=== PATIENT | female | born 1950 | race Caucasian/White ===

== ENCOUNTER 2018-06-27 10:50 | Inpatient (IN) | payer MEDICARE ==
[~2018-06-27] VITALS: Ht 160 cm; Wt 63.5 kg
[2018-06-27] MEDS ORDERED: ONDANSETRON HCL 4 MG/2 ML VIAL ONE (11:22)
[2018-06-27 11:26] LABS: BASOPHILS % (AUTO) 1.3 % (0.0-5.0); HEMATOCRIT 40.8 % (36-48); LYMPHOCYTES % (AUTO) 15.6 % (21.0-51.0); MEAN CORPUSCULAR HEMOGLOBIN 30.4 pg (27.0-33.0); MEAN CORPUSCULAR HGB CONC 34.9 g/dL (32.0-36.0); MEAN CORPUSCULAR VOLUME 87.2 fL (79-99); MONOCYTES % (AUTO) 5.7 % (3.0-13.0); NEUTROPHILS % (AUTO) 76.4 % (40.0-77.0); PLATELET COUNT (AUTO) 347 K/uL (130-400); RED BLOOD CELL COUNT(AUTO) 4.68 MIL/uL (4.00-5.50); RED CELL DISTRIBUTION WIDTH 12.6 % (11.0-15.5); WHITE BLOOD COUNT (AUTO) 7.7 K/uL (4.8-10.8)
[2018-06-27 11:37] LABS: CREATININE 0.6 mg/dL (0.5-1.5); POTASSIUM 3.2 mmol/L (3.5-5.1)
[2018-06-27 11:41] LABS: ALBUMIN 3.4 g/dL (3.5-5.0); BILIRUBIN,TOTAL 0.2 mg/dL (0.2-1.0); TOTAL PROTEIN, SERUM 7.1 g/dL (6.0-8.3)
[2018-06-27] MEDS ORDERED: FENTANYL CITRATE PF 50 MCG/1 ML 2ML VIAL ONE (12:08)
[2018-06-27] MEDS ORDERED: IOHEXOL 350 MG/ML 100ML INFUS..BTL IV ONE (12:10)
--- NOTE | 2018-06-27 12:45 | NUR ---
ER ADMIT TO ROOM 309. ASSESSMENT DONE.
[2018-06-27 13:42] LABS: APPEARANCE,URINE Clear (CLEAR); BILIRUBIN,URINE Negative (NEGATIVE); COLOR,URINE Yellow (YELLOW); GLUCOSE, URINE (UA) Negative (NEGATIVE); KETONES,URINE Negative (NEGATIVE); LEUKOCYTE ESTERASE ,URINE Negative (NEGATIVE); NITRATE,URINE Negative (NEGATIVE); OCCULT BLOOD,URINE Negative (NEGATIVE); PROTEIN,URINE Negative (NEGATIVE); UROBILINOGEN,URINE 0.2 mg/dL (0.2-1.0)
[2018-06-27] MEDS ORDERED: HYDRALAZINE HCL 20 MG/ML VIAL IV PRN (15:00)
[2018-06-27] MEDS ORDERED: ACETAMINOPHEN 325 MG TAB PO PRN ×2 (15:00)
[2018-06-27] MEDS ORDERED: ZOLPIDEM TARTRATE 5 MG TAB PO PRN (15:00)
[2018-06-27] MEDS ORDERED: ALPRAZOLAM 0.25 MG TABLET PO PRN (15:00)
[2018-06-27] MEDS ORDERED: LACTULOSE 20 GM/30 ML UDCUP PO PRN (15:00)
[2018-06-27] MEDS ORDERED: GUAIFENESIN-DM 200/20 MG 10 ML PO PRN (15:00)
[2018-06-27] MEDS ORDERED: ONDANSETRON HCL MDV 20ML 2 MG/ML VIAL IVP PRN (15:00)
[2018-06-27] MEDS ORDERED: METOPROLOL TARTRATE 1 MG/ML 5ML VIAL IV PRN (15:00)
[2018-06-27] MEDS ORDERED: IPRATROPIUM/ALBUTEROL SULFATE 3 ML SOLUTION IH PRN (15:00)
[2018-06-27] MEDS ORDERED: HYDROCODONE/ACETAMINOPHEN 5/325 MG TAB PO PRN (15:00)
--- NOTE | 2018-06-27 15:39 | NUR ---
DR. CARPIO HAS BEEN CONSULTED AND HAS RETURNED CALL.
[2018-06-27 16:00] VITALS: BP 154/75
[2018-06-27 19:05] VITALS: BP 127/64
[2018-06-27] MEDS ORDERED: LIDOCAINE HCL-MPF 1% 2ML VIAL IVP PRN (19:30)
[2018-06-27] MEDS ORDERED: POTASSIUM CHLORIDE 10% ELIXIR 20 MEQ/15 ML UDCUP PO PRN (19:30)
[2018-06-27] MEDS ORDERED: POTASSIUM CHLORIDE 20MEQ/100ML 100 ML IV PRN (19:30)
[2018-06-27] MEDS: HYDROMORPHONE HCL 2 MG/ML VIAL IVP PRN ×2 (19:36→21:14)
[2018-06-27] MEDS: POTASSIUM CHLORIDE 20 MEQ ERTAB PO PRN ×2 (21:05→23:03)
--- NOTE | 2018-06-27 22:32 | NUR ---
[facility] MED DISCREPANCY RECORDED IN [facility] AT 2113 PT RECEIVED DILAUDID IVP,ATTEMPTED TO DOCUMENT FOR PAIN REASSESSMENT WHEN MED WAS GIVEN BY DERRICK GEORGE RN, MAY HAVE CLICKED ON A LUCIO INADVERTENTLY THAT RECORDED MED WAS GIVEN AT SAID TIME. MED WAS ONLY GIVEN AT 1935 Addendum: 06/27/18 at 2235 by CAMILLE ALEGRE RN RN Amended: Links added.
[2018-06-28] VITALS (14 sets, daily range): BP systolic 109–160; BP diastolic 46–88
[2018-06-28] MEDS ORDERED: HYDROMORPHONE HCL 0.5 MG/0.5 ML ML ONE (01:17)
[2018-06-28] MEDS: POTASSIUM CHLORIDE 20 MEQ ERTAB PO PRN (01:20)
[2018-06-28 06:01] LABS: CREATININE 0.6 mg/dL (0.5-1.5); POTASSIUM 4.5 mmol/L (3.5-5.1)
[2018-06-28] MEDS: HYDROMORPHONE HCL 2 MG/ML VIAL IVP PRN ×2 (08:39→16:47)
[2018-06-28 09:14] LABS: INR 0.96 (0.85-1.15); PARTIAL THROMBOPLASTIN TIME 29.8 SEC (26.3-35.5); PROTHROMBIN TIME 10.1 SEC (9.6-11.6)
--- NOTE | 2018-06-28 10:45 | NUR ---
TAKEN DOWNSTAIRS FOR PROCEDURE. PATIENT AWAKE AND ALERT, VOICES NO COMPLAINTS.
[2018-06-28] MEDS ORDERED: LIDOCAINE HCL 1% 20 ML VIAL ONE (11:10)
[2018-06-28] MEDS ORDERED: FENTANYL CITRATE PF 50 MCG/1 ML 2ML VIAL ONE (11:10)
[2018-06-28] MEDS ORDERED: MIDAZOLAM HCL 1 MG/ML 2ML VIAL ONE (11:11)
--- NOTE | 2018-06-28 11:24 | NUR ---
DCP CM met with pt discussed dc plans. Pt is independent, lives at home with spouse. Denies any equipments/services. Pt feels safe to go back home, still drives, spouse able to assist with transportation and needs. DC plan to home once stable. CM to cont to follow up. Addendum: 06/28/18 at 1125 by SHERRI AREVALO LVN CM Amended: Links added.
--- NOTE | 2018-06-28 11:55 | NUR ---
CT GD RT CHEST WALL BX PROCEDURE PERFORMED BY DR Arely MOTT. PUNCTURE SITE RT CHEST AND PATIENT TOLERATED PROCEDURE WELL. SPECIMEN X 3 COLLECTED AND SENT TO LAB. END OF PROCEDURE AT 1140. BIOPSY NEEDLE REMOVED AND DRESSING APPLIED. NO BLEEDING NOTED. REPORT GIVEN TO Hernando RIOS LVN AND PATIENT TRANSPORTED TO [facility] VIA BED AT 1155. AAO X3 WITH NO C/O PAIN.
[2018-06-28] MEDS ORDERED: ONDANSETRON HCL 4 MG/2 ML VIAL ONE (12:48)
[2018-06-28] MEDS: LACTATED RINGERS 1000ML 1,000 ML IV SCH (12:52)
[2018-06-28] MEDS: PANTOPRAZOLE SODIUM 40 MG TABLET.DR PO SCH (16:46)
[2018-06-28] MEDS: NICOTINE 14 MG/ 24 HR PATCH TD SCH (16:46)
[2018-06-28] MEDS: DIPHENHYDRAMINE HCL 25 MG CAPSULE PO PRN (20:54)
[2018-06-29] MEDS: LACTATED RINGERS 1000ML 1,000 ML IV SCH ×3 (01:56→19:17)
[2018-06-29] MEDS: HYDROMORPHONE HCL 2 MG/ML VIAL IVP PRN ×3 (01:58→20:21)
[2018-06-29 03:00] VITALS: BP 179/98
[2018-06-29] MEDS ORDERED: CHOL500050 PO (03:42)
[2018-06-29] MEDS ORDERED: ALEN70TA10 PO (03:42)
[2018-06-29] MEDS ORDERED: AMLO5TAB9 PO ×2 (03:42→05:19)
[2018-06-29] MEDS ORDERED: ATOR10 PO (03:42)
[2018-06-29 05:35] LABS: CREATININE 0.5 mg/dL (0.5-1.5); POTASSIUM 4.2 mmol/L (3.5-5.1)
[2018-06-29 08:00] VITALS: BP 142/72
[2018-06-29] MEDS: PANTOPRAZOLE SODIUM 40 MG TABLET.DR PO SCH (09:14)
[2018-06-29] MEDS: NICOTINE 14 MG/ 24 HR PATCH TD SCH (09:14)
[2018-06-29 12:00] VITALS: BP 158/73
[2018-06-29] MEDS: DIPHENHYDRAMINE HCL 25 MG CAPSULE PO PRN ×2 (12:33→21:09)
--- NOTE | 2018-06-29 14:00 | NUR ---
PATIENT TAKEN DOWNSTAIRS FOR PROCEDURES . PATIENT IN NO ACUTE DISTRESS NOTED.
[2018-06-29] MEDS ORDERED: IOHEXOL-350 50ML VIAL IV ONE (14:03)
[2018-06-29 16:00] VITALS: BP 153/87
--- NOTE | 2018-06-29 18:46 | NUR ---
SPOKE WITH DR. BALLESTEROS NOTIFIED OF PATIENT CONSULT FOR [phone]. DR STATED HE WILL SEE PATIENT TOMORROW.
[2018-06-29 19:00] VITALS: BP 151/90
[2018-06-29] MEDS: LIDOCAINE 5% TOPICAL PATCH TP SCH (19:17)
[2018-06-29 23:17] VITALS: BP 144/77
[2018-06-30 03:00] VITALS: BP 136/83
[2018-06-30] MEDS: HYDROMORPHONE HCL 2 MG/ML VIAL IVP PRN ×2 (03:10→09:35)
[2018-06-30] MEDS: LACTATED RINGERS 1000ML 1,000 ML IV SCH (04:45)
[2018-06-30 05:04] LABS: BASOPHILS % (AUTO) 0.8 % (0.0-5.0); EOSINOPHILS % (AUTO) 1.3 % (0.0-8.0); HEMATOCRIT 37.8 % (36-48); LYMPHOCYTES % (AUTO) 14.3 % (21.0-51.0); MEAN CORPUSCULAR HEMOGLOBIN 31.1 pg (27.0-33.0); MEAN CORPUSCULAR HGB CONC 35.4 g/dL (32.0-36.0); MONOCYTES % (AUTO) 5.4 % (3.0-13.0); NEUTROPHILS % (AUTO) 78.2 % (40.0-77.0); PLATELET COUNT (AUTO) 273 K/uL (130-400); RED CELL DISTRIBUTION WIDTH 12.5 % (11.0-15.5); WHITE BLOOD COUNT (AUTO) 9.6 K/uL (4.8-10.8)
[2018-06-30 05:42] LABS: ALBUMIN 3.1 g/dL (3.5-5.0); BILIRUBIN,TOTAL 0.5 mg/dL (0.2-1.0); CREATININE 0.5 mg/dL (0.5-1.5); POTASSIUM 3.6 mmol/L (3.5-5.1); TOTAL PROTEIN, SERUM 6.6 g/dL (6.0-8.3)
[2018-06-30 07:30] VITALS: BP 160/86
[2018-06-30] MEDS: LIDOCAINE 5% TOPICAL PATCH TP SCH (09:10)
[2018-06-30] MEDS: PANTOPRAZOLE SODIUM 40 MG TABLET.DR PO SCH (09:10)
[2018-06-30] MEDS: DIPHENHYDRAMINE HCL 25 MG CAPSULE PO PRN ×2 (09:31→18:17)
[2018-06-30] MEDS: NICOTINE 14 MG/ 24 HR PATCH TD SCH (09:31)
[2018-06-30 11:00] VITALS: BP 148/79
--- NOTE | 2018-06-30 12:54 | NUR ---
[facility] was contacted to follow up with the bonescan, they verbalized that they will do the bonescan at about 1 pm.
[2018-06-30 16:00] VITALS: BP 143/78
[2018-06-30] MEDS: MORPHINE SULFATE 15 MG TABLET.SA PO SCH (18:17)
[2018-06-30 20:00] VITALS: BP 140/73
[2018-07-01 00:08] VITALS: BP 144/76
[2018-07-01] MEDS: LACTATED RINGERS 1000ML 1,000 ML IV SCH (00:43)
[2018-07-01] MEDS ORDERED: HYDROMORPHONE 1 MG/1 ML AMP ONE (00:47)
[2018-07-01] MEDS: DIPHENHYDRAMINE HCL 25 MG CAPSULE PO PRN (00:56)
[2018-07-01 04:00] VITALS: BP 127/71
[2018-07-01] MEDS: MORPHINE SULFATE 15 MG TABLET.SA PO SCH (06:42)
[2018-07-01 07:52] VITALS: BP 125/77
[2018-07-01] MEDS: PANTOPRAZOLE SODIUM 40 MG TABLET.DR PO SCH (08:43)
[2018-07-01] MEDS: LIDOCAINE 5% TOPICAL PATCH TP SCH (08:43)
[2018-07-01] MEDS: NICOTINE 14 MG/ 24 HR PATCH TD SCH (09:34)
[2018-07-01 11:19] VITALS: BP 125/61
== END 2018-07-01 14:05 | disposition home or self-care (01) | DRG 843 ==
LOC: EDH 10:50 → EDHIP 12:38 → 3BH 14:35
PROVIDERS: ADMIT Internal Medicine; ATTEND Internal Medicine
PROC: 0WB83ZX Excision of Chest Wall, Percutaneous Approach, Diagnostic (ICD-10-PCS; principal; 2018-06-28)
DX: C7A.8 Other malignant neuroendocrine tumors (principal); K85.90 Acute pancreatitis without necrosis or infection, unspecified; K86.2 Cyst of pancreas; C79.70 Secondary malignant neoplasm of unspecified adrenal gland; C79.89 Secondary malignant neoplasm of other specified sites; R22.2 Localized swelling, mass and lump, trunk; F17.210 Nicotine dependence, cigarettes, uncomplicated; I10 Essential (primary) hypertension; E78.5 Hyperlipidemia, unspecified; R07.89 Other chest pain; N28.89 Other specified disorders of kidney and ureter
CPT/HCPCS: 32405; 36415; 70460; 71260; 74177; 76705; 77012; 78306; 80048; 80053; 81003; 83690; 85025; 85610; 85730; 88305; 94664; 99152; 99153; A9503; G0378; J0360; J1170; J2250; J2405; J3010; J7120; Q0163; Q9967

== ENCOUNTER 2018-08-18 21:48 | Observation (INO) | payer MEDICARE ==
[~2018-08-18] VITALS: Ht 160 cm; Wt 59.0 kg
[~2018-08-18 21:48] MED LIST: ALEN70TA10 PO; AMLO5TAB9 PO; ATOR10 PO; CHOL500050 PO
[2018-08-18] MEDS ORDERED: KETOROLAC TROMETHAMINE 15MG/ML ONE (22:23)
[2018-08-18] MEDS ORDERED: DIAZEPAM 5 MG TABLET ONE (22:23)
[2018-08-18] MEDS ORDERED: ONDANSETRON HCL 4 MG/2 ML VIAL ONE (22:23)
[2018-08-18 23:03] LABS: BASOPHILS % (AUTO) 0.8 % (0.0-5.0); EOSINOPHILS % (AUTO) 0.1 % (0.0-8.0); HEMATOCRIT 32.2 % (36-48); LYMPHOCYTES % (AUTO) 11.6 % (21.0-51.0); MEAN CORPUSCULAR HEMOGLOBIN 29.9 pg (27.0-33.0); MEAN CORPUSCULAR HGB CONC 34.7 g/dL (32.0-36.0); MEAN CORPUSCULAR VOLUME 86.2 fL (79-99); MONOCYTES % (AUTO) 2.9 % (3.0-13.0); NEUTROPHILS % (AUTO) 84.6 % (40.0-77.0); NUCLEATED RED BLOOD CELLS 0.3 % (0.0-0.19); PLATELET COUNT (AUTO) 346 K/uL (130-400); RED BLOOD CELL COUNT(AUTO) 3.73 MIL/uL (4.00-5.50); RED CELL DISTRIBUTION WIDTH 14.2 % (11.0-15.5); WHITE BLOOD COUNT (AUTO) 3.9 K/uL (4.8-10.8)
[2018-08-18 23:19] LABS: CREATININE 1.1 mg/dL (0.5-1.5); POTASSIUM 4.2 mmol/L (3.5-5.1)
[2018-08-18 23:24] LABS: ALBUMIN 3.4 g/dL (3.5-5.0); BILIRUBIN,TOTAL 0.3 mg/dL (0.2-1.0)
[2018-08-19] MEDS ORDERED: LABETALOL HCL 5 MG/ML 20ML VIAL IV ONE (00:25)
[2018-08-19 01:17] VITALS: BP 195/105
[2018-08-19] MEDS ORDERED: [UNRECOGNIZED DRUG - CODE] PO (01:45)
[2018-08-19] MEDS ORDERED: DIPH25 PO (01:47)
[2018-08-19] MEDS ORDERED: SENN15TA38 PO (02:08)
[2018-08-19] MEDS ORDERED: GLYC-30 RC (02:08)
[2018-08-19] MEDS ORDERED: CLONIDINE HCL 0.1 MG TABLET ONE (02:40)
[2018-08-19] MEDS ORDERED: SODIUM CHLORIDE 0.9% 1000ML 1,000 ML IV SCH (03:00)
[2018-08-19] MEDS ORDERED: CLONIDINE HCL 0.1 MG TABLET PO PRN (03:00)
[2018-08-19] MEDS ORDERED: ONDANSETRON HCL 4 MG/2 ML VIAL IVP PRN (03:00)
[2018-08-19] MEDS ORDERED: MORPHINE SULFATE 15 MG TABLET.SA PO PRN (03:15)
[2018-08-19] MEDS ORDERED: GLYCERIN ADULT SUPP.RECT RC PRN (03:15)
[2018-08-19] MEDS ORDERED: DIPHENHYDRAMINE HCL 25 MG CAPSULE PO PRN (03:15)
[2018-08-19] MEDS ORDERED: DiphenhydrAMINE HCL 50 MG/ML VIAL IV PRN (03:15)
[2018-08-19] MEDS ORDERED: SENNOSIDES 8.6 MG TABLET PO PRN (03:15)
[2018-08-19] MEDS ORDERED: MORPHINE SULFATE 2 MG/ML 1ML SYG IVP PRN (03:15)
[2018-08-19 03:26] VITALS: BP 155/87
[2018-08-19 08:17] VITALS: BP 146/78
[2018-08-19] MEDS ORDERED: AMLODIPINE BESYLATE 5 MG TAB PO SCH (09:00)
--- NOTE | 2018-08-19 10:00 | NUR ---
CM NOTE PT DISCHARGED BEFORE SEEN BY CASE MANAGEMENT. WAS ADVISED BY PRIMARY RN THAT PT HAD A CHEMO THERAPY APPT TODAY AT DR. JERMAN ACEVEDO AND NEEDED TO BE DISCHARGED TO ATTEND. NO TRIGGERS TO CM, NO CONCERNS BY RN OR PT, NO CM DETAILED ASSESSMENT ON THIS ADMISSION Addendum: 08/19/18 at 1754 by SPARKLE ARMAS RN CM Amended: Links added.
[2018-08-19 11:41] VITALS: BP 145/74
[2018-08-19] MEDS ORDERED: ONDA8TAB5 PO (12:26)
== END 2018-08-19 12:47 | disposition home or self-care (01) ==
LOC: EDH 21:48 → 4AH 08-19 00:26
PROVIDERS: ADMIT Internal Medicine Hematology & Oncology; ATTEND Internal Medicine Hematology & Oncology
DX: I10 Essential (primary) hypertension (principal); R51 Headache; E78.5 Hyperlipidemia, unspecified; C34.90 Malignant neoplasm of unspecified part of unspecified bronchus or lung; C7B.8 Other secondary neuroendocrine tumors; F17.200 Nicotine dependence, unspecified, uncomplicated; Z90.710 Acquired absence of both cervix and uterus; Z51.11 Encounter for antineoplastic chemotherapy
CPT/HCPCS: 36415; 80053; 85025; 93005; 99284; G0378 ×12; J1885; J2405; J3490; Q0163

== ENCOUNTER 2018-09-17 10:50 | Observation (INO) | payer MEDICARE ==
[~2018-09-17] VITALS: Ht 160 cm; Wt 63.9 kg
[~2018-09-17 10:50] MED LIST changes: -ALEN70TA10 PO; -ATOR10 PO; -CHOL500050 PO; +DIPH25 PO; +GLYC-30 RC; +ONDA8TAB5 PO; +SENN15TA4 PO; +[UNRECOGNIZED DRUG - CODE] PO
[2018-09-17] MEDS ORDERED: SODIUM CHLORIDE 0.9% 1000ML 1,000 ML IV SCH (11:30)
[2018-09-17] MEDS ORDERED: TBO-FILGRASTIM 480 MCG/0.8 ML ML SQ SCH (13:55)
[2018-09-17 15:06] LABS: BASOPHILS % (AUTO) 3.1 % (0.0-5.0); EOSINOPHILS % (AUTO) 1.8 % (0.0-8.0); LYMPHOCYTES % (AUTO) 63.6 % (21.0-51.0); MEAN CORPUSCULAR HEMOGLOBIN 30.1 pg (27.0-33.0); MEAN CORPUSCULAR HGB CONC 34.3 g/dL (32.0-36.0); MEAN CORPUSCULAR VOLUME 87.7 fL (79-99); NEUTROPHILS % (AUTO) 29.5 % (40.0-77.0); NUCLEATED RED BLOOD CELLS 0.4 % (0.0-0.19); PLATELET COUNT (AUTO) 150 K/uL (130-400); RED CELL DISTRIBUTION WIDTH 17.9 % (11.0-15.5)
[2018-09-17 15:09] LABS: HEMATOCRIT 18.4 % (36-48); WHITE BLOOD COUNT (AUTO) 0.9 K/uL (4.8-10.8)
[2018-09-17] MEDS ORDERED: SODIUM CHLORIDE 0.9% 500ML 500 ML IV ONE (15:24)
[2018-09-17 17:00] VITALS: BP 145/76
[2018-09-17 20:00] VITALS: BP 151/82
[2018-09-18] VITALS: BP 144/79
[2018-09-18] MEDS ORDERED: ACETAMINOPHEN 325 MG TAB ONE (02:50)
[2018-09-18 04:00] VITALS: BP 166/84
[2018-09-18] MEDS ORDERED: ACETAMINOPHEN 325 MG TAB PO PRN (05:00)
[2018-09-18 06:44] LABS: HEMATOCRIT 32.6 % (36-48); MEAN CORPUSCULAR HEMOGLOBIN 29.5 pg (27.0-33.0); MEAN CORPUSCULAR HGB CONC 34.4 g/dL (32.0-36.0); MEAN CORPUSCULAR VOLUME 85.9 fL (79-99); NUCLEATED RED BLOOD CELLS 0.1 % (0.0-0.19); PLATELET COUNT (AUTO) 99 K/uL (130-400); RED BLOOD CELL COUNT(AUTO) 3.79 MIL/uL (4.00-5.50); RED CELL DISTRIBUTION WIDTH 15.8 % (11.0-15.5)
[2018-09-18 06:55] LABS: POTASSIUM 4.3 mmol/L (3.5-5.1)
[2018-09-18 07:00] VITALS: BP 161/91
[2018-09-18 07:57] LABS: WHITE BLOOD COUNT (AUTO) 0.7 K/uL (4.8-10.8)
--- NOTE | 2018-09-18 08:15 | NUR ---
NOTIFIED DR CRAIG REGARDING WBC UPDATE OF 0.7.PER OK TO CONT TO DISCHARGE HOME AND FOLLOW UP ON THURSDAY FOR MORE GRANIX.
== END 2018-09-18 09:30 | disposition home or self-care (01) ==
LOC: EDH 10:50 → EDHIP 10:51 → 3CH 16:35
PROVIDERS: ADMIT Internal Medicine Hematology & Oncology; ATTEND Internal Medicine Hematology & Oncology
DX: D61.818 Other pancytopenia (principal); E78.5 Hyperlipidemia, unspecified; I10 Essential (primary) hypertension; C7A.8 Other malignant neuroendocrine tumors; F17.210 Nicotine dependence, cigarettes, uncomplicated; Z79.899 Other long term (current) drug therapy
CPT/HCPCS: 36415 ×2; 36430; 80048; 85025; 85027; 86850; 86900; 86901; 86922; 99284; G0378 ×23; J1447; J7040; P9016 ×3

== ENCOUNTER 2019-02-19 04:44 | Emergency (ER) | payer MEDICARE ==
[~2019-02-19 04:44] MED LIST changes: +MORP-109 PO; -[UNRECOGNIZED DRUG - CODE] PO
[2019-02-19 05:30] LABS: APPEARANCE,URINE Clear (CLEAR); BILIRUBIN,URINE Negative (NEGATIVE); COLOR,URINE Yellow (YELLOW); GLUCOSE, URINE (UA) Negative (NEGATIVE); KETONES,URINE Negative (NEGATIVE); LEUKOCYTE ESTERASE ,URINE Trace (NEGATIVE); NITRATE,URINE Negative (NEGATIVE); OCCULT BLOOD,URINE Negative (NEGATIVE); PROTEIN,URINE Negative (NEGATIVE); UROBILINOGEN,URINE 0.2 mg/dL (0.2-1.0)
[2019-02-19 05:32] LABS: EOSINOPHILS % (AUTO) 2.6 % (0.0-8.0); HEMATOCRIT 45.4 % (36-48); MEAN CORPUSCULAR HGB CONC 33.5 g/dL (32.0-36.0); MEAN CORPUSCULAR VOLUME 92.5 fL (79-99); MONOCYTES % (AUTO) 7.3 % (3.0-13.0); NEUTROPHILS % (AUTO) 63.8 % (40.0-77.0); PLATELET COUNT (AUTO) 207 K/uL (130-400); RED BLOOD CELL COUNT(AUTO) 4.91 MIL/uL (4.00-5.50); RED CELL DISTRIBUTION WIDTH 12.9 % (11.0-15.5); WHITE BLOOD COUNT (AUTO) 5.9 K/uL (4.8-10.8)
[2019-02-19 05:45] LABS: POTASSIUM 3.4 mmol/L (3.5-5.1)
[2019-02-19 05:49] LABS: ALBUMIN 3.7 g/dL (3.5-5.0); BILIRUBIN,TOTAL 0.2 mg/dL (0.2-1.0); TOTAL PROTEIN, SERUM 7.1 g/dL (6.0-8.3)
[2019-02-19 05:51] LABS: INR 0.91 (0.85-1.15); PARTIAL THROMBOPLASTIN TIME 25.7 SEC (26.3-35.5); PROTHROMBIN TIME 9.6 SEC (9.6-11.6)
[2019-02-19] MEDS ORDERED: KETOROLAC TROMETHAMINE 15MG/ML ONE (05:54)
[2019-02-19] MEDS ORDERED: HYOSCYAMINE SULFATE 0.125 MG TAB.SUBL SL ONE (05:55)
[2019-02-19] MEDS ORDERED: SODIUM CHLORIDE 0.9% 1000ML 1,000 ML IV ONE (05:55)
[2019-02-19 06:02] LABS: BACTERIA,URINE None Seen /HPF (None Seen); RBC,URINE None Seen /HPF (0-1); SQUAMOUS EPITHELIAL CELL,UR Rare /HPF (0-2); WBC,URINE 0-1 /HPF (0-1)
== END 2019-02-19 07:06 | disposition home or self-care (01) ==
LOC: EDH 04:44
DX: A09 Infectious gastroenteritis and colitis, unspecified (principal); E86.0 Dehydration; I10 Essential (primary) hypertension; Z90.710 Acquired absence of both cervix and uterus; Z88.6 Allergy status to analgesic agent; Z72.0 Tobacco use
CPT/HCPCS: 36415; 71045; 74176; 80053; 81001; 82150; 83605; 83690; 84484; 85025; 85610; 85730; 87804 ×2; 93005; 96374; 99285; J1885; J7030